=== PATIENT | female | born 1990 | race Two or more races ===

== ENCOUNTER 2024-04-07 13:42 | Outpatient (CLI) | payer OTHER | END 2024-04-07 13:43 | disposition home or self-care (01) | LOC: PRENATAL 13:42 | PROVIDERS: ATTEND Obstetrics & Gynecology Maternal & Fetal Medicine | DX: O36.80X0 Pregnancy with inconclusive fetal viability, not applicable or unspecified (principal); Z36.82 Encounter for antenatal screening for nuchal translucency; Z36.9 Encounter for antenatal screening, unspecified; Z3A.13 13 weeks gestation of pregnancy ==

== ENCOUNTER → 2024-05-19 13:23 | Outpatient (CLI) | payer OTHER | END | disposition home or self-care (01) | LOC: PRENATAL 13:23 | PROVIDERS: ATTEND Obstetrics & Gynecology Maternal & Fetal Medicine | DX: O44.00 Complete placenta previa NOS or without hemorrhage, unspecified trimester (principal); Z3A.20 20 weeks gestation of pregnancy ==

== ENCOUNTER 2024-07-21 09:49 | Outpatient (CLI) | payer OTHER | END 2024-07-21 09:50 | disposition home or self-care (01) | LOC: PRENATAL 09:49 | PROVIDERS: ATTEND Obstetrics & Gynecology Maternal & Fetal Medicine | DX: O26.849 Uterine size-date discrepancy, unspecified trimester (principal); O44.00 Complete placenta previa NOS or without hemorrhage, unspecified trimester; Z3A.29 29 weeks gestation of pregnancy ==

== ENCOUNTER 2024-09-26 14:30 | Inpatient (IN) | payer OTHER ==
[2024-09-26 15:37] LABS: HEMATOCRIT 39.2 % (36.0-45.00); HEMOGLOBIN 13.1 g/dL (12.0-15.00); MEAN CELL VOLUME 84.2 fL (80.00-100.00); MEAN CORPUSCULAR HEMOGLOBIN 28.3 pg (27.00-32.0); MEAN CORPUSCULAR HGB CONC 33.6 g/dl (32.0-36.0); PLATELET COUNT 167 K/uL (150-450); RED BLOOD COUNT 4.65 M/uL (4.00-6.00); RED CELL DISTRIBUTION WIDTH 20.4 % (11.5-14.5)
[2024-09-26 15:41] LABS: URINE APPEARANCE Cloudy; URINE BILIRRUBIN Negative (NEGATIVE); URINE BLOOD Negative; URINE COLOR Yellow; URINE GLUCOSE Negative (NEGATIVE); URINE KETONE Negative (NEGATIVE); URINE LEUKOCYTE Trace; URINE NITRATE Negative; URINE PROTEIN Trace (NEGATIVE); URINE UROBILINOGEN 0.2 E.U./dl
[2024-09-26 15:44] LABS: URINE BACTERIA 655.9 uL (0.0-1933); URINE EPITHELIAL CELLS 16.9 uL (0.0-38.8); URINE RBC 2.7 uL (0.0-20.8); URINE WBC 41.6 uL (0.0-23.2)
[2024-09-26 15:53] LABS: INR 0.94; PARTIAL THROMBOPLASTIN TIME 26.2 SECONDS (22.0-34.0); PROTHROMBIN TIME 10.3 SECONDS (9.0-11.5)
[2024-09-26 15:57] LABS: ALBUMIN 3.1 gm/dL (3.4-5.0); BILIRUBIN TOTAL 0.83 mg/dL (0.3-1.2); CALCIUM 9.7 mg/dL (8.5-10.1); CREATININE SERUM 0.39 mg/dL (0.55-1.02); GFR 189.27; GLOBULINA 3.8 G/DL (2.4-3.5); POTASSIUM 3.59 mEq/L (3.5-5.1); TOTAL PROTEIN 6.9 gm/dL (6.4-8.2)
[2024-09-26 16:29] LABS: URINE CAST 1.03 uL (0.0-1.40)
[2024-09-26 16:30] LABS: URINE CRYSTALS MANY /HPF
[2024-10-07] MEDS ORDERED: AMPICILLIN SODIUM 2,000 MG VIAL ONE (08:30)
[2024-10-07] MEDS ORDERED: OXYTOCIN 20 UNITS/500ML RL PIGGYBAG IV ONE (08:30)
[2024-10-07] MEDS ORDERED: AMPICILLIN SODIUM 1,000 MG VIAL ONE (12:55)
[2024-10-07] MEDS ORDERED: OXYTOCIN 20 UNITS/1000ML RL PIGGYBAG IV ONE (13:36)
[2024-10-07] MEDS ORDERED: ACETAMINOPHEN 500 MG GEL..CAP PO PRN (21:15)
[2024-10-08 16:21] VITALS: BP 96/60
[2024-10-09] VITALS: BP 109/59
[2024-10-09 09:29] VITALS: BP 112/70
== END 2024-10-09 14:45 | disposition home or self-care (01) | DRG 807 ==
LOC: OB/GYN 10-07 08:00 → MEDI 10-11 14:30
PROVIDERS: ADMIT Obstetrics & Gynecology; ATTEND Obstetrics & Gynecology
PROC: 10E0XZZ Delivery of Products of Conception, External Approach (ICD-10-PCS; principal; 2024-10-07)
PROC: 0KQM0ZZ Repair Perineum Muscle, Open Approach (ICD-10-PCS; 2024-10-07)
PROC: 0UQMXZZ Repair Vulva, External Approach (ICD-10-PCS; 2024-10-07)
PROC: 4A1HXCZ Monitoring of Products of Conception, Cardiac Rate, External Approach (ICD-10-PCS; 2024-10-07)
DX: O70.1 Second degree perineal laceration during delivery (principal); Z37.0 Single live birth; Z3A.39 39 weeks gestation of pregnancy